=== PATIENT | female | born 1970 | race Caucasian/White ===

== ENCOUNTER 2019-08-17 15:43 | Emergency (ER) | payer OTHER ==
[~2019-08-17] VITALS: Ht 177.8 cm; Wt 86.4 kg
[2019-08-17 15:49] VITALS: Ht 177.8 cm; Wt 86.4 kg
[2019-08-17] MEDS ORDERED: METOPROLOL TART25 MG PO (15:50)
[2019-08-17] MEDS ORDERED: NITROQUICK0.4 MG SL (15:50)
[2019-08-17] MEDS ORDERED: VOLTAREN75 MG PO (16:53)
[2019-08-17] MEDS ORDERED: METHOCARBAMOL750 MG NG (16:53)
[2019-08-17 18:01] VITALS: BP 159/79
== END 2019-08-17 18:01 | disposition home or self-care (01) ==
LOC: D.ER 15:43
DX: M79.18 Myalgia, other site (principal); W10.9XXA Fall (on) (from) unspecified stairs and steps, initial encounter; Y93.9 Activity, unspecified; Y92.9 Unspecified place or not applicable; I11.0 Hypertensive heart disease with heart failure; I50.9 Heart failure, unspecified; Z95.0 Presence of cardiac pacemaker; Z72.0 Tobacco use